=== PATIENT | male | born 1970 | race African-American/Black ===

== ENCOUNTER → 2023-12-17 | Emergency (ER) | payer SELFPAY ==
--- NOTE | 2023-12-17 12:21 | EDPHYS ---
Physician Documentation [facility] Name: Jai Dean Age: 53 yrs Sex: Male : 1970 Arrival Date: 12/17/2023 Time: 11:59 Bed DX5 Private MD: ED Physician Kye Hayes HPI: 12/17 12:17 This 53 yrs old Black Male presents to ER via Unassigned with complaints of Sore rn Throat, Ear Pain. 12:17 The patient presents with sore throat. Onset: The symptoms/episode began/occurred 2 rn day(s) ago. Severity of symptoms: At their worst the symptoms were mild, in the emergency department the symptoms are unchanged. Modifying factors: The symptoms are alleviated by nothing, the symptoms are aggravated by swallowing. Associated signs and symptoms: Pertinent positives: Sore throat Earache, Pertinent negatives cough, dysphagia, fever, shortness of breath. The patient has not experienced similar symptoms in the past. Patient reports sore throat and bilateral ear pain, left ear worse than right. No trauma. No drainage. 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 Patient reports feels like is getting a cold and has not gotten better. No shortness of breath. No trouble swallowing.. Historical: - Allergies: 12:28 No Known Allergies; mb9 - Home Meds: 12:28 amlodipine oral [Active]; mb9 - PMHx: 12:28 Hypertensive disorder; mb9 - PSHx: 12:28 None; mb9 - Immunization history:: Adult Immunizations up to date. - Social history:: Smoking status: Patient denies any tobacco usage or history of. - Family history:: not pertinent. - Hospitalizations: : No recent hospitalization is reported. ROS: 12:17 Constitutional: Negative for fever, chills, and weight loss, Eyes: Negative for injury, rn pain, redness, and discharge, ENT: Positive for sore throat and ear pain Neck: Negative for injury, pain, and swelling, Cardiovascular: Negative for chest pain, palpitations, and edema, Respiratory: Negative for shortness of breath, cough, wheezing, and pleuritic chest pain, Abdomen/GI: Negative for abdominal pain, nausea, vomiting, diarrhea, and constipation, Back: Negative for injury and pain, MS/Extremity: Negative for injury and deformity, Neuro: Negative for headache, weakness, numbness, tingling, and seizure, Exam: 12:17 Constitutional: This is a well developed, well nourished patient who is awake, alert, rn and in no acute distress. Head/Face: Normocephalic, atraumatic. Eyes: Lids and lashes normal. Conjunctiva and sclera are non-icteric and not injected. Cornea within normal limits. Periorbital areas with no swelling, redness, or edema. ENT: Pharyngeal erythema without exudate. No stridor. Bilateral TM erythema with more irritation of the left TM compared to right. No perforation. Uvula midline. No evidence of peritonsillar abscess. Neuro: Awake and alert, GCS 15, ambulatory to room with normal gait Vital Signs: 12:27 BP 134 / 88; Pulse 88; Resp 18; Temp 98.5; Pulse Ox 100% ; Weight 102.06 kg; Height 5 mb9 ft. 11 in. ; Pain 7/10; 12:27 Body Mass Index 31.38 (102.06 kg, 180.34 cm) mb9 12:27 Pain Scale: Adult mb9 MDM: 12:03 Patient medically screened. rn 12:17 Differential diagnosis: Pharyngitis, otitis, viral syndrome. Data reviewed: vital rn signs, nurses notes, and as a result, I will discharge patient. Counseling: I had a detailed discussion with the patient and/or guardian regarding the historical points, exam findings, and any diagnostic results supporting the discharge/admit diagnosis, the need for outpatient follow up, to return to the emergency department if symptoms worsen or persist or if there are any questions or concerns that arise at home. Special discussion: I discussed with the patient/guardian in detail that at this point there is no indication for admission to the hospital. It is understood, however, that if the symptoms persist or worsen the patient needs to return immediately for re-evaluation. 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 Use rn - Patient Portal Instructions rn - Leadership Thank You Letter rn Prescriptions: - Augmentin 875-125 mg Oral Tablet - take 1 tablet ORAL route every 12 hours for 10 days; 20 tablet; Refills: 0, rn Product Selection Permitted Signatures: Kye Hayes MD MD rn Breneman, Mary Beth, RN RN mb9 Corrections: (The following items were deleted from the chart) 12:19 12:17 Constitutional: Negative for fever, chills, and weight loss, Eyes: Negative for rn injury, pain, redness, and discharge, ENT: Positive for sore throat and ear pain Neck: Negative for injury, pain, and swelling, Cardiovascular: Negative for chest pain, palpitations, and edema, Respiratory: Negative for shortness of breath, cough, wheezing, and pleuritic chest pain, Abdomen/GI: Negative for abdominal pain, nausea, vomiting, diarrhea, and constipation, MS/Extremity: Negative for injury and deformity, Neuro: Negative for headache, weakness, numbness, tingling, and seizure, rn 12:20 12:17 Constitutional: This is a well developed, well nourished patient who is awake, rn alert, and in no acute distress. rn
--- NOTE | 2023-12-17 12:21 | ER ---
[facility]urse's [facility] Name: Jai Dean Age: 53 yrs Sex: Male : 1970 Arrival Date: 12/17/2023 Time: 11:59 Bed DX5 Private MD: Diagnosis: Acute pharyngitis, unspecified;Otitis media, unspecified, left ear Presentation: 12/17 12:27 Chief complaint: Patient states: "My throat and both ears have been hurting since mb9 yesterday.". Coronavirus screen: Vaccine status: Patient reports receiving the 2nd dose of the covid vaccine. Ebola Screen: No symptoms or risks identified at this time. Initial Sepsis Screen: Does the patient meet any 2 criteria? No. Patient's initial sepsis screen is negative. Does the patient have a suspected source of infection? No. Patient's initial sepsis screen is negative. Risk Assessment: Do you want to hurt yourself or someone else? Patient reports no desire to harm self or others. Onset of symptoms was December 17, 2023. 12:27 Method Of Arrival: Ambulatory 9 12:27 Acuity: BETTY 5 mb9 Triage Assessment: 12:28 General: Appears in no apparent distress. Behavior is calm, cooperative. Pain: mb9 Complains of pain in throat Pain does not radiate. Quality of pain is described as throbbing, Pain began 1 day ago. EENT: Reports pain in left ear and right ear. Neuro: Coyle Agitation-Sedation Scale (RASS): 0 - Alert and Calm Level of Consciousness is awake, alert, obeys commands, Oriented to person, place, time, situation, Appropriate for age. Cardiovascular: Patient's skin is warm and dry. Respiratory: Airway is patent Respiratory effort is even, unlabored, Respiratory pattern is regular, symmetrical. GI: No signs and/or symptoms were reported involving the gastrointestinal system. : No signs and/or symptoms were reported regarding the genitourinary system. Derm: Skin is pink, warm \\T\\ dry. Musculoskeletal: Range of motion: intact in all extremities. Historical: - Allergies: 12:28 No Known Allergies; mb9 - Home Meds: 12:28 amlodipine oral [Active]; mb9 - PMHx: 12:28 Hypertensive disorder; mb9 - PSHx: 12:28 None; mb9 - Immunization history:: Adult Immunizations up to date. - Social history:: Smoking status: Patient denies any tobacco usage or history of. - Family history:: not pertinent. - Hospitalizations: : No recent hospitalization is reported. Screenin:18 [facility] ED Fall Risk Assessment (Adult) History of falling in the last 3 months, mb9 including since admission No falls in past 3 months (0 pts) Confusion or Disorientation No (0 pts) Intoxicated or Sedated No (0 pts) Impaired Gait No (0 pts) Mobility Assist Device Used No (0 pt) Altered Elimination No (0 pt) Score/Fall Risk Level 0 - 2 = Low Risk Oriented to surroundings, Maintained a safe environment, Educated pt \\T\\ family on fall prevention, incl call for assistance when getting out of bed. Abuse screen: Denies threats or abuse. Nutritional screening: No deficits noted. Tuberculosis screening: No symptoms or risk factors identified. Assessment: 12:31 Reassessment: see triage assessment. mb9 Vital Signs: 12:27 BP 134 / 88; Pulse 88; Resp 18; Temp 98.5; Pulse Ox 100% ; Weight 102.06 kg; Height 5 mb9 ft. 11 in. ; Pain 7/10; 12:27 Body Mass Index 31.38 (102.06 kg, 180.34 cm) mb9 12:27 Pain Scale: Adult mb9 ED Course: 12:01 Patient arrived in ED. mg5 12:03 Kye Hayes MD is Attending Physician. rn 12:18 Rhianna Olmedo RN is Primary Nurse. mb9 12:18 Arm band placed on. mb9 12:19 Call light in reach. Client placed on continuous cardiac and pulse oximetry monitoring. mb9 NIBP monitoring applied. 12:28 Triage completed. mb9 12:31 No provider procedures requiring assistance completed. Patient did not have IV access mb9 during this emergency room visit. Administered Medications: No medications were administered Medication: 12:31 VIS not applicable for this client. mb9 Outcome: 12:21 Discharge ordered by . rn 12:31 Discharged to home ambulatory, mb9 12:31 Condition: stable 12:31 Discharge instructions given to patient, Instructed on discharge instructions, follow up and referral plans. Demonstrated understanding of instructions, follow-up care, medications, Prescriptions given X 1, 12:31 Patient left the ED. mb9 Signatures: Kye Hayes MD MD rn Breneman, Rhianna Good RN RN mb9 Marcie Villalobos 5
[2023-12-17 12:53] VITALS: BP 134/88; TEMP 98.5; O2SAT 100
== END ==
LOC: ER 11:59
DX: J02.9 Acute pharyngitis, unspecified (principal); H66.92 Otitis media, unspecified, left ear
CPT/HCPCS: 99283

== ENCOUNTER 2024-03-07 14:36 | Emergency (ER) | payer BC ==
[2024-03-07] MEDS ORDERED: ONDANSETRON 4 MG/2 ML VIAL ONE (15:04)
[2024-03-07] MEDS ORDERED: NA CHLORIDE 0.9% 1,000 ML ONE (15:04)
[2024-03-07 15:23] LABS: Absolute Basophils 0.1 K/uL (0-0.5); Absolute Eosinophils 0.3 K/uL (0-0.5); Absolute Lymphocytes (CBC) 1.3 K/uL (0.7-4.9); Absolute Monocytes 0.5 K/uL (0.1-1.3); Absolute Neutrophil 2.7 K/uL (1.8-8.0); Basophils % 2.3 % (0-1.3); Hematocrit 42.2 % (39.6-49.0); Hemoglobin 13.9 g/dL (13.6-17.9); Lymphocytes % 25.7 % (15.3-44.8); MCH 28.9 pg (27.0-35.0); MCHC 32.9 g/dL (32.0-36.0); MCV 87.7 fL (80-100); Monocytes % 10.7 % (3.3-12.3); Neutrophils % 54.3 % (41.7-73.7); Nucleated Red Blood Cells % 0.1 % (0-0); Platelets 234 thou/uL (152-406); RBC Red Blood Cell Count 4.82 M/uL (4.33-5.43); Red Cell Distribution Width 14.4 % (12.1-15.2)
[2024-03-07 15:43] LABS: Albumin 3.8 g/dL (3.4-5.0); Anion Gap 4.3 mEq/L (5.0-15.0); Bilirubin Total 0.5 mg/dL (0.2-1.0); Globulin 3.9 g/dL (2.3-3.5); Potassium 3.3 mEq/L (3.5-5.1); Protein, Total 7.7 g/dL (6.4-8.2)
[2024-03-07] MEDS ORDERED: POTASSIUM CL SA 10 MEQ TAB PO ONE (15:48)
--- NOTE | 2024-03-07 15:49 | ER ---
Nurse's Notes [facility] Name: Jai Dean Age: 53 yrs Sex: Male : 1970 Arrival Date: 03/07/2024 Time: 14:36 Bed 17 Private MD: Diagnosis: Diarrhea, unspecified;Nausea with vomiting, unspecified;Pain in left knee Presentation: 03/07 14:53 Chief complaint: Patient states: left knee pain and swelling, and diarrhea. Coronavirus as6 screen: At this time, the client does not indicate any symptoms associated with coronavirus-19. Ebola Screen: No symptoms or risks identified at this time. Initial Sepsis Screen: Does the patient meet any 2 criteria? No. Patient's initial sepsis screen is negative. Does the patient have a suspected source of infection? No. Patient's initial sepsis screen is negative. Risk Assessment: Do you want to hurt yourself or someone else? Patient reports no desire to harm self or others. Onset of symptoms was March 06, 2024. 14:53 Method Of Arrival: Ambulatory as6 14:53 Acuity: BETTY 3 as6 Historical: - Allergies: 14:56 No Known Allergies; as6 - PMHx: 14:56 Hypertensive disorder; as6 - PSHx: 14:56 None; as6 - Immunization history:: Adult Immunizations up to date. - Infectious Disease History:: Denies. - Social history:: Smoking status: Patient denies any tobacco usage or history of. Screenin:[facility] ED Fall Risk Assessment (Adult) History of falling in the last 3 months, nj1 including since admission No falls in past 3 months (0 pts) Confusion or Disorientation No (0 pts) Intoxicated or Sedated No (0 pts) Impaired Gait No (0 pts) Mobility Assist Device Used No (0 pt) Altered Elimination No (0 pt) Score/Fall Risk Level 0 - 2 = Low Risk Oriented to surroundings, Maintained a safe environment, Hourly rounding (assess needs \T\ fall precautionary measures) done. Abuse screen: Denies threats or abuse. Denies injuries from another. Nutritional screening: No deficits noted. Tuberculosis screening: No symptoms or risk factors identified. Assessment: 15:00 General: Appears in no apparent distress. comfortable, Behavior is calm, cooperative, nj1 appropriate for age. 15:00 Pain: Complains of pain in left knee Pain currently is 5 out of 10 on a pain scale. nj1 Neuro: Level of Consciousness is awake, alert, obeys commands, Oriented to person, place, time, situation. Cardiovascular: Patient's skin is warm and dry. Respiratory: Airway is patent Respiratory effort is even, unlabored. GI: Reports diarrhea. Musculoskeletal: Reports pain in left knee. 15:51 Reassessment: Patient appears in no apparent distress at this time. Patient and/or nj1 family updated on plan of care and expected duration. Pain level reassessed. Patient is alert, oriented x 3, equal unlabored respirations, skin warm/dry/pink. Vital Signs: 14:53 Pulse 88; Resp 18 S; Temp 97.9(TE); Pulse Ox 98% on R/A; Weight 108.86 kg (R); Height 5 as6 ft. 10 in. (R); Pain 5/10; 14:57 BP 139 / 87; as6 16:04 BP 125 / 87; kc6 14:53 Body Mass Index 34.44 (108.86 kg, 177.8 cm) as6 14:53 Pain Scale: Adult as6 ED Course: 14:42 Patient arrived in ED. mr 14:46 [facility] kb 14:46 Tejas Babb MD is Attending Physician. kb 14:56 Triage completed. as6 14:57 Arm band placed on right wrist. as6 15:00 Patricia Ellington, RN is Primary Nurse. nj1 15:16 Patient has correct armband on for positive identification. Bed in low position. Call nj1 light in reach. Adult w/ patient. Provided Education on: call light, fall precautions. 16:04 No provider procedures requiring assistance completed. IV discontinued, intact, kc6 bleeding controlled, No redness/swelling at site. Pressure dressing applied. Administered Medications: 15:10 Drug: NS 0.9% IV 1000 ml IV at 1 bolus Per protocol; 1000 mL bolus Route: IV; Rate: 1 nj1 bolus; Site: right upper arm; 15:11 Drug: Ondansetron IVP 4 mg IVP once; over 2 minutes Route: IVP; Site: right upper arm; nj1 15:51 Follow up: Response: No adverse reaction nj1 15:50 Drug: Potassium Chloride PO 20 mEq PO once Route: PO; nj1 Medication: 16:04 VIS not applicable for this client. kc6 Outcome: 15:48 Discharge ordered by . kb 16:04 Discharged to home ambulatory, with significant other, kc6 16:04 Condition: improved 16:04 Discharge instructions given to patient, Instructed on discharge instructions, follow up and referral plans. medication usage, Demonstrated understanding of instructions, follow-up care, medications, Prescriptions given X 1, 16:04 Patient left the ED. kc6 Signatures: Vita Little, UTILITY WORKER [employer]-C UTILITY WORKER [employer]-Ckb Rhianna Kulkarni, Reg Reg mr ShinGermán smith, RN RN as6 Christal Singh RN RN kc6 Patricia Ellington RN RN nj1
--- NOTE | 2024-03-07 15:49 | EDPHYS ---
Physician Documentation [facility] Name: Jai Dean Age: 53 yrs Sex: Male : 1970 Arrival Date: 03/07/2024 Time: 14:36 Bed 17 Private MD: ED Physician Tejas Babb HPI: 03/07 15:45 This 53 yrs old Black Male presents to ER via Ambulatory with complaints of Diarrhea, kb Knee Pain. 15:45 Pt is a 53 year old male who presents for n/v/d that started yesterday. States his boss kb told him he had to get checked out and get a dr's note to return so that is why he came in. Denies fever, abd pain. Also reports left knee pain and swelling that has been intermittent for years, but he has not had it evaluated in the past. States this episode started about a week ago and he thought he would mention it since he was here. Denies injury or trauma. . Historical: - Allergies: 14:56 No Known Allergies; as6 - PMHx: 14:56 Hypertensive disorder; as6 - PSHx: 14:56 None; as6 - Immunization history:: Adult Immunizations up to date. - Infectious Disease History:: Denies. - Social history:: Smoking status: Patient denies any tobacco usage or history of. ROS: 15:45 Constitutional: As per HPI kb Exam: 15:45 Constitutional: This is a well developed, well nourished patient who is awake, alert, kb and in no acute distress. Head/Face: Normocephalic, atraumatic. ENT: Moist Mucous membranes Cardiovascular: Regular rate Respiratory: Respirations even and unlabored. No increased work of breathing. Talking in full sentences Abdomen/GI: Soft, non-tender. No distention Skin: Warm, dry with normal turgor. Normal color. MS/ Extremity: Pulses equal, no cyanosis. Neurovascular intact. Full, normal range of motion. Neuro: Awake and alert, GCS 15, oriented to person, place, time, and situation. Moves all extremities. Normal gait. Vital Signs: 14:53 Pulse 88; Resp 18 S; Temp 97.9(TE); Pulse Ox 98% on R/A; Weight 108.86 kg (R); Height 5 as6 ft. 10 in. (R); Pain 5/10; 14:57 BP 139 / 87; as6 16:04 BP 125 / 87; kc6 14:53 Body Mass Index 34.44 (108.86 kg, 177.8 cm) as6 14:53 Pain Scale: Adult as6 MDM: 14:56 Patient medically screened. kb 15:45 Differential diagnosis: Nonspecific abd pain, gastritis, diverticulitis, viral kb gastroenteritis. Data reviewed: vital signs, nurses notes. Test considered but Not performed: CT: ct abd/pelvis considered but pt has no abd tenderness, vss, afebrile and nontoxic in appearance. . Test considered but Not performed: X-ray: knee x-ray considered, but pt has had no injury, ambulates with steady gait . Counseling: I had a detailed discussion with the patient and/or guardian regarding the historical points, exam findings, and any diagnostic results supporting the discharge/admit diagnosis, lab results, the need for outpatient follow up, a family practitioner, a orthopedic surgeon, to return to the emergency department if symptoms worsen or persist or if there are any questions or concerns that arise at home. 03/07 14:57 Order name: CBC with Diff; Complete Time: 15:41 kb 03/07 14:57 Order name: CMP; Complete Time: 15:44 kb 03/07 14:57 Order name: Lipase; Complete Time: 15:44 kb 03/07 14:57 Order name: IV Saline Lock; Complete Time: 15:13 kb 03/07 14:57 Order name: Labs collected and sent; Complete Time: 15:13 kb 03/07 15:44 Order name: PO challenge; Complete Time: 15:59 kb Administered Medications: 15:10 Drug: NS 0.9% IV 1000 ml IV at 1 bolus Per protocol; 1000 mL bolus Route: IV; Rate: 1 nj1 bolus; Site: right upper arm; 15:11 Drug: Ondansetron IVP 4 mg IVP once; over 2 minutes Route: IVP; Site: right upper arm; nj1 15:51 Follow up: Response: No adverse reaction nj1 15:50 Drug: Potassium Chloride PO 20 mEq PO once Route: PO; nj1 Disposition Summary: 03/07/24 15:48 Discharge Ordered Notes: Location: Home kb Condition: Stable kb Diagnosis - Diarrhea, unspecified kb - Nausea with vomiting, unspecified kb - Pain in left knee kb Followup: kb - With: Emergency Department - When: As needed - Reason: Worsening of condition Followup: kb - With: Private Physician - When: 2 - 3 days - Reason: Recheck today's complaints, Continuance of care, Re-evaluation by your physician Discharge Instructions: - Discharge Summary Sheet kb - Viral Gastroenteritis, Adult, [id number] kb - Chronic Knee Pain, Adult, [id number] kb Forms: - Work release form kb - Medication Reconciliation Form kb - Antibiotic Education kb - Prescription Opioid Use kb - Patient Portal Instructions kb - Leadership Thank You Letter kb Prescriptions: - Zofran 4 mg Oral tablet - take 1 tablet ORAL route every 6 hours As needed; 12 tablet; Refills: 0, kb Product Selection Permitted Signatures: Dispatcher [employer] EDMS Vita Little, ROPE MAKER-C ROPE MAKER-Germán Brody RN RN as6 Patricia Ellington RN RN nj1 Corrections: (The following items were deleted from the chart) 14:57 14:57 CBC+H.LAB.BRZ ordered. EDMS EDMS 14:57 14:57 COMPREHENSIVE METABOLIC PANEL+C.LAB.BRZ ordered. EDMS EDMS 14:57 14:57 LIPASE+C.LAB.BRZ ordered. EDMS EDMS
[2024-03-07 16:34] VITALS: BP 125/87; TEMP 97.9; O2SAT 98
== END 2024-03-07 16:04 | disposition home or self-care (01) ==
LOC: ER 14:36
DX: R19.7 Diarrhea, unspecified (principal); R11.2 Nausea with vomiting, unspecified; M25.562 Pain in left knee; I10 Essential (primary) hypertension
CPT/HCPCS: 85025; 36415; 83690; 80053; J2405; J7030